=== PATIENT | male | born 1970 | race Caucasian/White ===

== ENCOUNTER → 2018-04-29 | Outpatient (CLI) | payer BC ==
--- NOTE | 2018-04-29 16:12 | RADIOLOGY REPORT (SQ) ---
EXAM DESCRIPTION: MRI RT UPPER JOINT WITHOUT COMPLETED DATE/TIME: 04/29/2018 3:32 pm REASON FOR STUDY: RUPTURE OF RIGHT DISTAL BICEPS TENDON S46.211A STRAIN OF MUSC/FASC/TEND PRT BICEP S, RIGHT ARM, INI COMPARISON: None. TECHNIQUE: Right elbow images acquired and stored on PACS. Multiplanar images to include fat sensiti ve sequences as T1, fluid sensitive sequences as T2/STIR, cartilage sensitive sequences as FSPD, and gradient echo sequences. LIMITATIONS: Some of the sequences are limited by motion artifact. FINDINGS: BONE MARROW: No alteration of signal to suggest marrow replacement or edema. No occult fra cture. No large osteophytes. JOINT EFFUSION: None noted. No loose bodies. ARTICULAR SURFACES: Normal. MEDIAL COLLATERAL LIGAMENT COMPLEX: Intact without edema or tear. MEDIAL EPICONDYLE AND COMMON FLEXOR TENDON: No tendinopathy. No partial or full-thickness tear. LATERAL COLLATERAL LIGAMENT: Intact without edema or tear. LATERAL EPICONDYLE AND COMMON EXTENSOR TENDON: No tendinopathy. No partial or full-thickness tear. LATERAL ULNAR COLLATERAL LIGAMENT: Intact without evidence for tear. BICEPS TENDON: Completely torn and retracted. Retraction is probably 5 cm or greater. Regional primitivo a and fluid. TRICEPS TENDON: Intact. ULNAR NERVE: Well-visualized without edema or encroachment. ADJACENT SOFT TISSUES: No masses or edema. OTHER: No other significant finding. IMPRESSION: 1. Completely torn and retracted biceps tendon. TECHNICAL DOCUMENTATION: JOB ID: [id number] [employer]- All Rights Reserved Reading location - IP/workstation name: [email or web address]
== END ==
LOC: RAD 14:24
PROVIDERS: ATTEND Orthopaedic Surgery
DX: S46.211A Strain of muscle, fascia and tendon of other parts of biceps, right arm, initial encounter (principal); X58.XXXA Exposure to other specified factors, initial encounter; Y93.9 Activity, unspecified; Y92.9 Unspecified place or not applicable